=== PATIENT | male | born 1955 | race Caucasian/White ===

== ENCOUNTER 2023-07-15 01:18 | Day surgery (SDC) | payer MEDICARE, SELFPAY ==
[2023-06-22 10:20] VITALS: BMI 21.8
--- NOTE | 2023-07-13 12:23 | SUR.PREOP ---
Patient called regarding upcoming procedure. Reviewed preop instructions, appointment times, and procedure prep.
--- NOTE | 2023-07-14 14:54 | PM.HPGS ---
History of Present Illness History of Present Illness Consent: Risks, benefits, and alternatives have been discussed and questions answered. Patient agrees to proceed with procedure. Chief complaint: History of Colon Polyps Narrative: Sixto Espino is a 67 year old male Who was referred for colon cancer screening. his last colonoscopy was 10 years ago. Review of Systems Review of Systems: All systems reviewed & are unremarkable except as noted in HPI and below PMFSH Family History Family History Father Patient's father is in good health Sibling Patient's brother is in good health Mother Patient's mother is Social History Social History Smoking status: Never smoker Alcohol intake: current Drinks per week: 7 Substance use type: does not use Living arrangements: other Additional living arrangements comments: with sp Meds Home Medications and Allergies Home Medications Medication Instructions Recorded Confirmed Type atorvastatin 20 mg tablet 20 mg PO DAILY 06/22/23 07/15/23 History finasteride 5 mg tablet 5 mg PO DAILY 06/22/23 07/15/23 History Allergies Allergy/AdvReac Type Severity Reaction Status Date / Time lactose Allergy Heartburn Verified 07/15/23 06:33 Exam Resp: Auscultation: clear to auscultation bilaterally Cardio: Rate: regular rate Rhythm: regular rhythm GI: GI Palp: Yes Soft to palpation and No Tenderness to palpation present (GI) Assessment and Plan Assessment and plan (1) Colon cancer screening: Code(s): Z12.11 - Encounter for screening for malignant neoplasm of colon Status: Acute Assessment and Plan: Colonoscopy with possible biopsy or polypectomy or cautery or injection of substances.
[2023-07-15 06:36] VITALS: BP 109/68; PULSE 70; RESP 17; TEMP 35.8; O2SAT 100; BMI 21.9
[2023-07-15] MEDS: LACTATED RINGERS 1,000 ML 150 ML IV CONT (06:49)
--- NOTE | 2023-07-15 07:42 | P.PNAN_ITS ---
Anes - Initial Pre Proc Eval Procedure: Operation Date: 07/15/23 08:00 Proposed Procedures p Colonoscopy - Jose Nguyen MD Date/Time: 07/15/23 07:42 Surgeon: Jose Nguyen MD Pre Op Diagnosis: History of Colon Polyps Patient Data Age: 67 Gender: M Height: 1.68 m Weight: 61.8 kg Last Vital Signs Temp 96.4 F L 07/15/23 06:36 Pulse 70 07/15/23 06:36 Resp 17 07/15/23 06:36 BP 109/68 07/15/23 06:36 Pulse Ox 100 07/15/23 06:36 O2 Del Method Room Air 07/15/23 06:36 Allergies Allergy/AdvReac Type Severity Reaction Status Date / Time lactose Allergy Heartburn Verified 07/15/23 06:33 Home Medications Medication Instructions Recorded Confirmed Type atorvastatin 20 mg tablet 20 mg PO DAILY 06/22/23 07/15/23 History finasteride 5 mg tablet 5 mg PO DAILY 06/22/23 07/15/23 History Patient hx anesthesia problems: none Family hx anesthesia problems: none Results Review: All pre-operative results and documents have been reviewed as part of the pre- operative evaluation. [facility] Family History Family History Father Patient's father is in good health Sibling Patient's brother is in good health Mother Patient's mother is Social History Social History Smoking status: Never smoker Alcohol intake: current Drinks per week: 7 Substance use type: does not use Living arrangements: other Additional living arrangements comments: with sp Anes - Eval Final PreProcedure Day of Procedure 07/15/23 07:42 Patient weight: normal Heart: regular rate and rhythm Lungs: clear to auscultation Airway: Mallampati scale class II Neurological: alert and oriented Last oral intake: >/= 8 hours ASA classification: II Emergent: no Anesthetic plan: proceed Anesthesia type and monitoring: general GIVS and standard monitoring Results Review: All pre-operative results and documents have been reviewed as part of the pre- operative evaluation. Informed Consent: The patient's anesthetic plan and its attendant risks and benefits were discussed with the patient/family/POA. Questions were solicited and answers provided to the satisfaction of the patient/family/POA.
[2023-07-15 08:13] VITALS: BP 85/58; PULSE 73; RESP 17; O2SAT 98
[2023-07-15 08:23] VITALS: BP 84/56; PULSE 68; RESP 16; O2SAT 100
[2023-07-15 08:33] VITALS: BP 96/54; PULSE 67; RESP 16; O2SAT 100
== END 2023-07-15 08:43 | disposition home or self-care (01) ==
PROVIDERS: PCP Family Medicine Sports Medicine; Visit Provider Internal Medicine Gastroenterology
PROC: 0DJD8ZZ Inspection of Lower Intestinal Tract, Via Natural or Artificial Opening Endoscopic (ICD-10-PCS; CPT 45378; principal; 2023-07-15 08:00)
DX: Z12.11 Encounter for screening for malignant neoplasm of colon (principal); K57.30 Diverticulosis of large intestine without perforation or abscess without bleeding
CPT/HCPCS: G0121; J2704; J7120